=== PATIENT | female | born 1975 | race American Indian/Alaskan Native ===

== ENCOUNTER 2019-03-03 21:52 | Observation (INO) | payer OTHER ==
[2019-03-03] MEDS ORDERED: ASPIRIN 325 MG TAB PO ONE (22:22)
--- NOTE | 2019-03-04 00:29 | XRay Report ---
CHEST 1 VIEW INDICATION: Chest Pain. COMPARISON: None. FINDINGS: Support devices: None. Heart: Normal. Lungs/Pleura: No acute pulmonary or pleural findings. IMPRESSION: 1. No acute findings. Signer Name: Shaheed Elizondo MD Signed: 03/04/2019 12:25 AM Workstation Name: [id number]
[2019-03-04 01:31] LABS: Basophils # (Auto) 0.1 K/mm3 (0.0-0.1); Basophils % (Auto) 1.1 % (0.0-1.8); Eosinophils # (Auto) 0.1 K/mm3 (0.0-0.4); Eosinophils % (Auto) 2.2 % (0.0-4.3); Hematocrit 35.8 % (30.3-42.9); Hemoglobin 11.8 gm/dl (10.1-14.3); Lymphocytes # (Auto) 1.4 K/mm3 (1.2-5.4); Lymphocytes % (Auto) 22.9 % (13.4-35.0); Mean Corpuscular HGB Conc 33 % (30-34); Mean Corpuscular Volume 92 fl (79-97); Monocytes # (Auto) 0.5 K/mm3 (0.0-0.8); Monocytes % (Auto) 8.5 % (0.0-7.3); Platelet Count 262 K/mm3 (140-440); Red Blood Count 3.89 M/mm3 (3.65-5.03); Red Cell Distribution Width 13.5 % (13.2-15.2)
[2019-03-04 01:51] LABS: BUN/Creatinine Ratio 10; Blood Urea Nitrogen 9 mg/dL (7-17); Calcium 9.5 mg/dL (8.4-10.2); Hemolysis Index 21
[2019-03-04] MEDS ORDERED: ONDANSETRON 4 MG/2 ML INJ IV ONE (02:03)
[2019-03-04] MEDS ORDERED: fentaNYL 100 MCG/2 ML INJ IV ONE (02:03)
[2019-03-04] MEDS ORDERED: NITROGLYCERIN 2% OINT 1 GM TP ONE (02:03)
--- NOTE | 2019-03-04 02:10 | Emergency Department Report ---
HPI - General Chief Complaint: Chest Pain Time Seen by Provider: 03/04/19 01:52 - [facility] HPI: Room 22 The patient is a 43-year-old female presenting with a chief complaint of chest pain. The patient states for one week she's had a constant chest tightness /pressure that waxes and wanes. Patient admits to shortness of breath and orthopnea. Patient states she also had pain in her left upper extremity and back. Patient admits to shortness of breath and nausea without vomiting associated with chest pain. The patient states occasionally she becomes di aphoretic. States her pain is worse when supine. Patient admits to a cough but denies history of fever. Patient gives her pain a score of 6/10. Location: [See above] Duration: [See above] Quality: [See above] Severity: [See above] Timing: [See above] Context: [See above] Modifying factors: [See above] Associated signs and symptoms: [see above] ED Past Medical Hx - Past Medical History Previous Medical History?: Yes Additional medical history: Bronchitis - Surgical History Past Surgical History?: No - Family History Family history: no significant - Social History Smoking Status: Never Smoker Substance Use Type: None (denies illicit drug use), Alcohol (rarely) ED Review of Systems ROS: Stated complaint: CHEST PAIN,CRIS, Other details as noted in HPI Constitutional: diaphoresis Eyes: denies: eye pain ENT: denies: throat pain Respiratory: cough, shortness of breath Cardiovascular: chest pain Endocrine: no symptoms reported Gastrointestinal: nausea. denies: vomiting Genitourinary: denies: dysuria Musculoskeletal: back pain Neurological: denies: headache Physical Exam - Physical Exam Vital Signs: Vital Signs 03/03/19 22:02 Temperature 98.3 F Pulse Rate 110 H Respiratory 18 Rate Blood Pressure 144/96 O2 Sat by Pulse 100 Oximetry Physical Exam: GENERAL: The patient is well-developed well-nourished female sitting on stretcher solemn but not appearing to be in acute distress HEENT: Normocephalic. Atraumatic. Extraocular motions are intact. Patient has moist mucous membranes. NECK: Supple. Trachea midline CHEST/LUNGS: Clear to auscultation. There is no respiratory distress noted. HEART/CARDIOVASCULAR: Regular. There is no tachycardia. There is no gallop, pericardial friction rub or murmur. No rub auscultated when patient is asked to lean forward ABDOMEN: Abdomen is soft, nontender. Patient has normal bowel sounds. There is no abdominal distention. SKIN: There is no rash. There is no edema. There is no diaphoresis. NEURO: The patient is awake, alert, and oriented. The patient is cooperative. The patient has normal speech MUSCULOSKELETAL: There is no evidence of acute injury. ED Course Vital Signs 03/03/19 22:02 Temperature 98.3 F Pulse Rate 110 H Respiratory 18 Rate Blood Pressure 144/96 O2 Sat by Pulse 100 Oximetry ED Medical Decision Making - Lab Data Result diagrams: 03/04/19 00:44 03/04/19 00:44 Laboratory Tests 03/04/19 03/04/19 03/04/19 00:44 00:44 00:44 WBC 5.9 RBC 3.89 Hgb 11.8 Hct 35.8 MCV 92 MCH 30 MCHC 33 RDW 13.5 Plt Count 262 Lymph % (Auto) 22.9 [place] % (Auto) 8.5 H Eos % (Auto) 2.2 Baso % (Auto) 1.1 Lymph # 1.4 [place] # 0.5 Eos # 0.1 Baso # 0.1 Seg Neutrophils % 65.3 Seg Neutrophils # 3.9 Sodium 139 Potassium 4.3 Chloride 102.1 Carbon Dioxide 24 Anion Gap 17 BUN 9 Creatinine 0.9 Estimated GFR > 60 BUN/Creatinine Ratio 10 Glucose 107 H Calcium 9.5 Troponin T < 0.010 HCG, Qual Negative - EKG Data -: EKG Interpreted by Me EKG shows normal: sinus rhythm Rate: normal - EKG Data When compared to previous EKG there are: previous EKG unavailable Interpretation: nonspecific ST-T wave pedrito (T-wave inversion in lead 3) - Radiology Data Radiology results: report reviewed (chest x-ray), image reviewed (chest x-ray) interpreted by me: Chest x-ray-no focal infiltrates, no pneumothorax [facility] [address] [place] [address] XRay Report Signed Patient: YENNI ADAN MR#: [id number] 5 : 1975 Acct:[id number] Age/Sex: 43 / F ADM Date: 03/03/19 Loc: ED Attending Dr: Ordering Physician: ED DOC, Date of Service: 03/03/19 Procedure(s): XR chest 1V ap Accession Number(s): [id number] cc: ED DOC, Fluoro Time In Minutes: CHEST 1 VIEW INDICATION: Chest Pain. COMPARISON: None. FINDINGS: Support devices: None. Heart: Normal. Lungs/Pleura: No acute pulmonary or pleural findings. IMPRESSION: 1. No acute findings. Signer Name: Shaheed Elizondo MD Signed: 03/04/2019 12:25 AM Workstation Name: [id number] Transcribed By: DONN Dictated By: Shaheed Elizondo MD Electronically Authenticated By: Shaheed Elizondo MD Signed Date/Time: 03/04/1924 DD/ TD/TT: - Differential Diagnosis pericarditis, ACS, myocarditis, GERD, CHF Critical care attestation.: If time is entered above; I have spent that time in minutes in the direct care of this critically ill patient, excluding procedure time. ED Disposition Clinical Impression: Chest pain Disposition: DC-09 OP ADMIT IP TO THIS HOSP Is pt being admited?: Yes Does the pt Need Aspirin: Yes Condition: Fair Instructions: Chest Pain (ED) Referrals: PRIMARY CARE, [Primary Care Provider] - 3-5 Days Time of Disposition: 02:12 (hospitalist paged (Dr. Danielle Vasquez))
[2019-03-04] MEDS ORDERED: ASPIRIN 325 MG TAB ONE (03:52)
--- NOTE | 2019-03-04 04:03 | History and Physical Report ---
History of Present Illness History of present illness: 49-year-old woman with a known medical history comes to the emergency room complaints of chest pain that started 1 week ago. Pain is in the epigastric area which she describes as s pressure/tightness, unclear how long it lasts for, intensity 5/10, radiating to the left arm and back, cannot identify exacerbating factors. admits to nausea vomiting shortness of breath., Denies diaphoresis, palpitation she is being admitted for further work-up of chest pain Review Of Systems: Constitutional: no weight loss, fever, chills Ears, eyes, nose, mouth and throat: no nasal congestion, no nasal discharge, no sinus pressure, blurry vision, diplopia Neck: No neck pain or rigidity. Cardiovascular: No palpitations Respiratory: No s cough Gastrointestinal: No hematochezia, abdominal pain Genitourinary : no dysuria, frequency , hematuria Musculoskeletal: no muscle ache , joint pain Integumentary: no rash, no pruritis Neurological: no parathesias, focal weakness Endocrine: no cold or heat intolerance, no polyuria or polydipsia Hematologic/Lymphatic: no easy bruising, no easy bleeding, no gland swelling Allergic/Immunologic: no urticaria, no angioedema. PAST MEDICAL HISTORY: None PAST SURGICAL HISTORY: None FAMILY HISTORY:hypertension, diabetes SOCIAL HISTORY:No acco, no drugs, alcohol Medications and Allergies Allergies Allergy/AdvReac Type Severity Reaction Status Date / Time No Known Allergies Allergy Verified 03/04/19 01:55 Exam - Physical Exam Narrative exam: General Apperance: The patient sitting in bed no acute distress HEENT: Normocephalic, atraumatic. Pupils equally round and reactive to light, extraocular movement intact, and no sclericterus or JVD or thyromegaly or nodule. Neck supple, no carotid bruit, mucous membranes moist, no exudate or erythema Heart: S1-S2, regular is rhythm Lungs: Clear to auscultation bilaterally, breathing comfortable Abdomen: Positive bowel sounds, soft, nontender, nondistended, no organomegaly Extremities: No edema cyanosis clubbing Skin: no rash, nodule, warm and dry Neuro:CN 2 -12 intact, motor/sensory intact, speech is fluent - Constitutional Vitals: Temp Pulse Resp BP Pulse Ox 98.3 F 72 22 127/85 99 03/03/19 22:02 03/04/19 02:30 03/04/19 02:30 03/04/19 02:30 03/04/19 02:30 Results - Labs CBC & Chem 7: 03/04/19 00:44 03/04/19 00:44 Labs: Abnormal lab results 03/04/19 03/04/19 Range/Units 00:44 00:44 [place] % (Auto) 8.5 H (0.0-7.3) % Glucose 107 H (65-100) mg/dL - Imaging and Cardiology EKG: image reviewed Chest x-ray: report reviewed Assessment and Plan Assessment Chest pain Check cardiac enzymes, obtain stress test Start aspirin, Percocet DVT prophylaxis
[2019-03-04] MEDS ORDERED: ACETAMINOPHEN 325 MG TAB PO PRN (04:13)
[2019-03-04] MEDS ORDERED: oxyCODONE /ACETAMINOPHEN 5-325MG TAB PO PRN (04:13)
[2019-03-04] MEDS ORDERED: ONDANSETRON 4 MG/2 ML INJ IV PRN (04:13)
[2019-03-04] MEDS ORDERED: ENOXAPARIN 30 MG/0.3 ML INJ SUB-Q SCH (10:00)
--- NOTE | 2019-03-04 10:23 | Event Note ---
Date: 03/04/19 Patient presents with chest pain. I have seen and examined her. For stress test tomorrow.
[2019-03-04] MEDS ORDERED: FLU VACC QUAD 2019-20 (3 YR UP)/PF 60 MCG/0.5 ML SYRINGE IM ONE (11:58)
[2019-03-04] MEDS: ENOXAPARIN 40 MG/0.4 ML INJ SUB-Q SCH (13:05)
[2019-03-05 06:22] LABS: Basophils % (Auto) 0.6 % (0.0-1.8); Eosinophils # (Auto) 0.2 K/mm3 (0.0-0.4); Eosinophils % (Auto) 4.5 % (0.0-4.3); Hematocrit 33.9 % (30.3-42.9); Hemoglobin 11.2 gm/dl (10.1-14.3); Lymphocytes # (Auto) 1.9 K/mm3 (1.2-5.4); Lymphocytes % (Auto) 42.8 % (13.4-35.0); Mean Corpuscular HGB Conc 33 % (30-34); Mean Corpuscular Volume 92 fl (79-97); Monocytes # (Auto) 0.4 K/mm3 (0.0-0.8); Monocytes % (Auto) 9.1 % (0.0-7.3); Platelet Count 234 K/mm3 (140-440); Red Blood Count 3.67 M/mm3 (3.65-5.03); Red Cell Distribution Width 13.5 % (13.2-15.2)
[2019-03-05 06:47] LABS: BUN/Creatinine Ratio 12; Blood Urea Nitrogen 11 mg/dL (7-17); Calcium 9.2 mg/dL (8.4-10.2); Hemolysis Index 1
[2019-03-05] MEDS: ENOXAPARIN 40 MG/0.4 ML INJ SUB-Q SCH (14:47)
--- NOTE | 2019-03-05 15:56 | Discharge Summary ---
Providers - Providers Date of Admission: 03/04/19 04:04 Date of discharge: 03/05/19 Attending physician: CLAUDIA BROWN Primary care physician: TRAVIS DIGGS MD Hospitalization Condition: Fair Disposition: DC-01 TO HOME OR SELFCARE Exam - Constitutional Vitals: Temp Pulse Resp BP Pulse Ox 98.4 F 86 18 128/80 98 03/05/19 07:38 03/05/19 10:13 03/05/19 07:38 03/05/19 10:53 03/05/19 10:00 Plan Activity: advance as tolerated Diet: low fat, low cholesterol, low salt Plan of Treatment: 1.Follow up with PCP in 1 week Follow up with: PRIMARY CAREMD [Primary Care Provider] - 3-5 Days
[2019-03-05 17:26] VITALS: BP 105/66
== END 2019-03-05 17:45 | disposition home or self-care (01) ==
LOC: ED 21:52 → 4A 03-04 04:04
PROVIDERS: ADMIT Internal Medicine; ATTEND Internal Medicine
DX: R07.89 Other chest pain (principal)
CPT/HCPCS: 36415; 71045; 80048; 84484; 84703; 85025; 93005; 93010; 93017; 96372; 96374; 99284; G0378; J1650; J2405; 90686